=== PATIENT | male | born 1970 | race Caucasian/White ===

== ENCOUNTER 2018-02-12 12:00 | Emergency (ER) | END 2018-02-12 13:50 | disposition home or self-care (01) ==

== ENCOUNTER 2018-02-14 16:00 | Emergency (ER) | END 2018-02-14 19:10 | disposition home or self-care (01) ==

== ENCOUNTER 2018-02-21 09:00 | Emergency (ER) | END 2018-02-21 10:16 | disposition home or self-care (01) ==